=== PATIENT | female | born 1950 | race Caucasian/White ===

== ENCOUNTER 2017-04-11 17:37 | Emergency (ER) | payer MEDICARE ==
[~2017-04-11] VITALS: Ht 157.5 cm; Wt 58.0 kg
[~2017-04-11 17:37] MED LIST: AMLO10TA2 PO; ATOR40TA78 PO; CLON0.1T PO; DOCU100T6 PO; IBUP-1484 PO; OXYC-302 PO
[2017-04-11 18:04] VITALS: BP 107/67
== END 2017-04-11 19:22 | disposition home or self-care (01) ==
LOC: ED 19:17
DX: F10.220 Alcohol dependence with intoxication, uncomplicated (principal); I10 Essential (primary) hypertension
CPT/HCPCS: 99283

== ENCOUNTER 2018-03-29 11:38 | Emergency (ER) | payer MEDICARE ==
[~2018-03-29] VITALS: Ht 157.5 cm; Wt 64.0 kg
[~2018-03-29 11:38] MED LIST changes: -AMLO10TA2 PO; +AMLO10TA6 PO
[2018-03-29] MEDS ORDERED: AMLODIPINE 5 MG TABLET ONE (12:10)
[2018-03-29] MEDS ORDERED: ASPIRIN 81 MG TABLET CHEW ONE (12:10)
[2018-03-29 12:21] LABS: BASOPHILS # (AUTO) 0.22 x10^3/uL (0-0.1); BASOPHILS % (AUTO) 2 % (0-1); EOSINOPHILS # (AUTO) 0.05 x10^3/uL (0-0.4); EOSINOPHILS % (AUTO) 0 % (1-7); LYMPHOCYTES # (AUTO) 3.74 x10^3/uL (1-3.4); LYMPHOCYTES % (AUTO) 26 % (22-44); MD NO; MEAN CORPUSCULAR HEMOGLOBIN 30.3 pg (27.0-34.8); MEAN CORPUSCULAR HGB CONC 33.7 g/dL (32.4-35.8); MEAN CORPUSCULAR VOLUME 89.7 fL (80-100); MEAN PLATELET VOLUME 8.2 fL (7.4-10.4); MONOCYTES # (AUTO) 0.77 x10^3/uL (0.2-0.8); MONOCYTES % (AUTO) 5 % (2-9); NEUTROPHILS # (AUTO) 9.59 x10^3/uL (1.8-6.8); NEUTROPHILS % (AUTO) 67 % (42-75); PLATELET COUNT 406 x10^3/uL (130-400); RED BLOOD COUNT 5.35 x10^6/uL (3.82-5.3); RED CELL DISTRIBUTION WIDTH 15.9 % (9.6-15.2)
[2018-03-29] MEDS ORDERED: ASPIRIN 81 MG TABLET CHEW PO ONE (12:30)
[2018-03-29] MEDS ORDERED: AMLODIPINE 5 MG TABLET PO ONE (12:30)
[2018-03-29 12:33] LABS: ANION GAP 10 mmol/L (5-15); CALCIUM 8.7 mg/dL (8.5-10.1); CHLORIDE 111 mmol/L (98-107); CREATININE 0.93 mg/dL (0.55-1.02)
[2018-03-29 12:37] LABS: TROPONIN I < 0.015 ng/mL (0.000-0.045)
[2018-03-29 13:38] VITALS: BP 127/77
== END 2018-03-29 13:40 | disposition home or self-care (01) ==
LOC: ED 13:05
DX: I10 Essential (primary) hypertension (principal); F10.120 Alcohol abuse with intoxication, uncomplicated; R07.9 Chest pain, unspecified; Z76.0 Encounter for issue of repeat prescription
CPT/HCPCS: 36415; 71045; 80048; 82040; 84484; 85025; 99285

== ENCOUNTER 2018-10-10 06:51 | Emergency (ER) | payer MEDICARE ==
[~2018-10-10] VITALS: Ht 157.5 cm; Wt 63.8 kg
[~2018-10-10 06:51] MED LIST changes: -AMLO10TA6 PO; +AMLO10TA8 PO; -CLON0.1T PO; +CLON0.1T22 PO
[2018-10-10 06:57] VITALS: BP 168/101
--- NOTE | 2018-10-10 07:17 | NUR ---
Pt ambulated from restroom to ED room with steady gait and balance. Pt provided urine sample. NADN. No obvious defecits observed. Pt resting on gurney in room with call light in reach talking to ED PA.
[2018-10-10 07:34] LABS: BASOPHILS # (AUTO) 0.06 x10^3/uL (0-0.1); BASOPHILS % (AUTO) 1 % (0-1); EOSINOPHILS # (AUTO) 0.05 x10^3/uL (0-0.4); EOSINOPHILS % (AUTO) 1 % (1-7); LYMPHOCYTES # (AUTO) 1.61 x10^3/uL (1-3.4); LYMPHOCYTES % (AUTO) 14 % (22-44); MD NO; MEAN CORPUSCULAR HEMOGLOBIN 30.6 pg (27.0-34.8); MEAN CORPUSCULAR HGB CONC 32.7 g/dL (32.4-35.8); MEAN CORPUSCULAR VOLUME 93.5 fL (80-100); MEAN PLATELET VOLUME 7.5 fL (7.4-10.4); MONOCYTES # (AUTO) 0.55 x10^3/uL (0.2-0.8); MONOCYTES % (AUTO) 5 % (2-9); NEUTROPHILS # (AUTO) 8.93 x10^3/uL (1.8-6.8); NEUTROPHILS % (AUTO) 80 % (42-75); PLATELET COUNT 432 x10^3/uL (130-400); RED BLOOD COUNT 5.39 x10^6/uL (3.82-5.3); RED CELL DISTRIBUTION WIDTH 14.8 % (9.6-15.2)
[2018-10-10 07:45] LABS: ALBUMIN 3.8 g/dL (3.4-5.0); ANION GAP 8 mmol/L (5-15); CALCIUM 9.2 mg/dL (8.5-10.1); CHLORIDE 107 mmol/L (98-107); CREATININE 0.88 mg/dL (0.55-1.02)
[2018-10-10 07:55] LABS: MICROSCOPIC NOT IND
[2018-10-10 08:01] LABS: CULTURE INDICATED? NO
[2018-10-10] MEDS ORDERED: SODIUM CHLORIDE FLUSH 10ML SYR IVF ONE (09:00)
--- NOTE | 2018-10-10 09:22 | NUR ---
Pt transported [facility] to imaging.
[2018-10-10] MEDS ORDERED: OMNIPAQUE 350 MG/ML, 100ML BOTTLE ONE (09:44)
--- NOTE | 2018-10-10 10:14 | NUR ---
Pt states to ED RN, "Can't you take this thing out of my arm? How long is it going to be for the CT results to get back? Can't I go outside and smoke a cigarette, I can go outside the ER and smoke. Can't I eat?". Pt aggressive towards EDRN stating that EDRN is not "being cooperative with her" when EDRN educated patient about hospital smoking policy and NPO status prior to CT results coming back. EDPA aware. ED RN discontinued PIV. Please see charting.
--- NOTE | 2018-10-10 10:19 | NUR ---
Pt refusing to have vital signs checked.
--- NOTE | 2018-10-10 10:32 | NUR ---
Patient given discharge instructions and they have confirmed that they understand the instructions. Patient ambulatory with steady gait. Pt left with d/c paperwork, referral, prescription, and all personal belongings.
== END 2018-10-10 10:34 | disposition home or self-care (01) ==
LOC: ED 10:23
DX: K50.10 Crohn's disease of large intestine without complications (principal); R30.0 Dysuria; I10 Essential (primary) hypertension; F17.210 Nicotine dependence, cigarettes, uncomplicated
CPT/HCPCS: 36415; 74177; 80048; 81003; 82040; 85025; 99284; Q9967

== ENCOUNTER 2018-10-31 07:19 | Emergency (ER) | payer MEDICARE ==
[~2018-10-31] VITALS: Ht 157.5 cm; Wt 60.6 kg
--- NOTE | 2018-10-31 07:57 | NUR ---
X-RAY DELAYED PER RN REQUEST
[2018-10-31] MEDS ORDERED: MORPHINE SULFATE 4 MG/ML, 1ML IVPush PRN (08:00)
[2018-10-31] MEDS ORDERED: ONDANSETRON 2MG/ML, 2ML IVPush ONE (08:00)
[2018-10-31] MEDS ORDERED: FAMOTIDINE 20 MG/2 ML IVP ONE (08:00)
[2018-10-31] MEDS ORDERED: SODIUM CHLORIDE 0.9% 1,000ML IVBOLUS ONE (08:00)
--- NOTE | 2018-10-31 08:10 | NUR ---
PT ARRIVED TO ED, AMBULATORY TO ROOM 16. PT C/O ABDOMINAL PAIN, NAUSEA, VOMITTING, DIARRHEA, BLOODY STOOLS FOR APPROX. 1 MONTH. PT RECENTLY DIAGNOSED WITH CHRONS DISEASE. PT IN GOWN, AMBULATORY TO RESTROOM FOR UA. VSS, NAD, ROOM AIR, AT BEDSIDE. CALL LIGHT WITHIN REACH, BEDRAILS X [address]
[2018-10-31] MEDS ORDERED: FAMOTIDINE 20 MG/2 ML ONE (08:17)
[2018-10-31] MEDS ORDERED: ONDANSETRON 2MG/ML, 2ML ONE (08:17)
[2018-10-31] MEDS ORDERED: MORPHINE SULFATE 4 MG/ML, 1ML ONE (08:17)
--- NOTE | 2018-10-31 08:20 | NUR ---
22G PIV ESTABLISHED PER MD ORDER. PT MEDICATED PER EMAR.
[2018-10-31 08:22] LABS: MEAN CORPUSCULAR HEMOGLOBIN 29.6 pg (27.0-34.8); MEAN CORPUSCULAR HGB CONC 32.3 g/dL (32.4-35.8); MEAN CORPUSCULAR VOLUME 91.5 fL (80-100); MEAN PLATELET VOLUME 6.9 fL (7.4-10.4); PLATELET COUNT 559 x10^3/uL (130-400); RED BLOOD COUNT 5.23 x10^6/uL (3.82-5.3); RED CELL DISTRIBUTION WIDTH 14.2 % (9.6-15.2)
[2018-10-31 08:28] LABS: MICROSCOPIC AUTO
[2018-10-31 08:31] LABS: CULTURE INDICATED? NO
[2018-10-31 08:39] LABS: ALBUMIN 3.8 g/dL (3.4-5.0); ANION GAP 6 mmol/L (5-15); CALCIUM 10.1 mg/dL (8.5-10.1); CHLORIDE 105 mmol/L (98-107)
--- NOTE | 2018-10-31 08:41 | NUR ---
PT TO XRAY
[2018-10-31 08:43] LABS: ALANINE AMINOTRANSFERASE 29 U/L (12-78); ALKALINE PHOSPHATASE 209 U/L (45-117); BILIRUBIN,TOTAL 0.4 mg/dL (0.2-1.0); CREATININE 0.98 mg/dL (0.55-1.02); TOTAL PROTEIN 8.5 g/dL (6.4-8.2)
--- NOTE | 2018-10-31 08:46 | NUR ---
ATTEMPTED TO DO MED REC, BOTH PT AND DO NOT KNOW PT'S MEDICATIONS. NOTED AMLODIPINE IN MED REC BUT PT STATES SHE IS NO LONGER TAKEN THIS.
[2018-10-31 08:58] LABS: MD YES
[2018-10-31 09:01] LABS: <PLATELET ESTIMATE> INCREASED; <PLT MORPHOLOGY> NORMAL PLT MORPH; <RBC MORPHOLOGY> NORMAL; BAND#(MANUAL) 1.06 x10^3/uL; BANDS%(MANUAL) 8 % (0-7); LYMPH#(MANUAL) 0.92 x10^3/uL (1-3.4); LYMPHS% (MANUAL) 7 % (22-44); MONOS% (MANUAL) 3 % (2-9); SEG#(MANUAL) 10.82 x10^3/uL (1.8-6.8); SEGS% (MANUAL) 82 % (42-75)
--- NOTE | 2018-10-31 09:45 | NUR ---
PT TO CT.
[2018-10-31] MEDS ORDERED: OMNIPAQUE 350 MG/ML, 100ML BOTTLE ONE (10:08)
[2018-10-31 10:31] VITALS: BP 136/98
--- NOTE | 2018-10-31 10:32 | NUR ---
PT BACK FROM CT. AMBULATED TO RESTROOM.
--- NOTE | 2018-10-31 11:13 | NUR ---
Patient/Caregiver given discharge instructions and they have confirmed that they understand the instructions. Patient ambulatory with steady gait.
== END 2018-10-31 11:14 | disposition home or self-care (01) ==
LOC: ED 07:56
DX: K50.10 Crohn's disease of large intestine without complications (principal); I10 Essential (primary) hypertension; R19.7 Diarrhea, unspecified
CPT/HCPCS: 36415; 74021; 74177; 80053; 81001; 83690; 85025; 96361; 96374; 96375; 99284; J2270; J2405; J3490; J7030; Q9967

== ENCOUNTER 2019-07-30 15:38 | Emergency (ER) | payer MEDICARE ==
[~2019-07-30] VITALS: Ht 157.5 cm; Wt 58.5 kg
[~2019-07-30 15:38] MED LIST changes: -IBUP-1484 PO; +IBUP-1902 PO
[2019-07-30] MEDS ORDERED: HYDROmorphone 1 MG/ML, 1ML INJ ONE (16:00)
[2019-07-30] MEDS ORDERED: HYDROmorphone 2 MG/ML, 1ML IVPush PRN (16:00)
[2019-07-30] MEDS ORDERED: SODIUM CHLORIDE FLUSH 10ML SYR IVF ONE (16:00)
[2019-07-30] MEDS ORDERED: ONDANSETRON 2MG/ML, 2ML IVPush ONE (16:00)
[2019-07-30] MEDS ORDERED: ONDANSETRON 2MG/ML, 2ML ONE (16:00)
[2019-07-30 16:14] LABS: BASOPHILS # (AUTO) 0.06 x10^3/uL (0-0.1); BASOPHILS % (AUTO) 1 % (0-1); EOSINOPHILS # (AUTO) 0.05 x10^3/uL (0-0.4); EOSINOPHILS % (AUTO) 1 % (1-7); LYMPHOCYTES % (AUTO) 22 % (22-44); MD NO; MEAN CORPUSCULAR HEMOGLOBIN 30.6 pg (27.0-34.8); MEAN CORPUSCULAR HGB CONC 33.1 g/dL (32.4-35.8); MEAN CORPUSCULAR VOLUME 92.4 fL (80-100); MEAN PLATELET VOLUME 7.4 fL (7.4-10.4); MONOCYTES # (AUTO) 0.74 x10^3/uL (0.2-0.8); MONOCYTES % (AUTO) 7 % (2-9); NEUTROPHILS # (AUTO) 7.38 x10^3/uL (1.8-6.8); NEUTROPHILS % (AUTO) 70 % (42-75); PLATELET COUNT 442 x10^3/uL (130-400); RED BLOOD COUNT 4.76 x10^6/uL (3.82-5.3); RED CELL DISTRIBUTION WIDTH 15.5 % (9.6-15.2)
[2019-07-30 16:27] LABS: ALANINE AMINOTRANSFERASE 50 U/L (12-78); ALBUMIN 3.6 g/dL (3.4-5.0); ANION GAP 8 mmol/L (5-15); CALCIUM 9.5 mg/dL (8.5-10.1); CHLORIDE 103 mmol/L (98-107); CREATININE 0.91 mg/dL (0.55-1.02)
--- NOTE | 2019-07-30 16:27 | NUR ---
PT WITH C/O DIARHHEA X 6 DAYS. PT ALSO STATES SHE IS HAVING INCREASED BACK PAIN. PT DENIES URINARY SYMPTOMS. PT WITH HX CHRONIC BACK PAIN, CHRONES. PT WALKED TO BR, PT STEADY C USE OF CANE. UA SAMPLE COLLECTED AND SENT TO LAB. PIV INTITATED AND PT MEDICATED PER JUL. PT TO BP, CONT PULSE OX
[2019-07-30 16:29] LABS: ALKALINE PHOSPHATASE 218 U/L (45-117); BILIRUBIN,TOTAL 0.4 mg/dL (0.2-1.0); TOTAL PROTEIN 7.6 g/dL (6.4-8.2)
[2019-07-30 16:36] LABS: MICROSCOPIC NOT IND
[2019-07-30 16:38] LABS: CULTURE INDICATED? NO
--- NOTE | 2019-07-30 17:26 | NUR ---
PT UPDATED ON POC. PT TO GO TO CT, VSS
[2019-07-30 18:37] VITALS: BP 168/75
--- NOTE | 2019-07-30 18:37 | NUR ---
PT UNABLE TO PROVIDE STOOL SAMPLE. PT PLACED FOR RECHECK
[2019-07-30] MEDS ORDERED: OMNIPAQUE 350 MG/ML, 100ML BOTTLE ONE (18:49)
--- NOTE | 2019-07-30 19:16 | NUR ---
Report received from ELLIOTT Mccloud. This RN to assume care. Patient states she spoke with ERP and she's ready to go home. Patient to be discharged.
== END 2019-07-30 19:19 | disposition home or self-care (01) ==
LOC: ED 16:38
DX: K50.80 Crohn's disease of both small and large intestine without complications (principal); M54.5 Low back pain; I10 Essential (primary) hypertension; F17.200 Nicotine dependence, unspecified, uncomplicated
CPT/HCPCS: 36415; 74177; 80053; 81003; 83605; 83690; 85025; 96374; 96375; 99285; J1170; J2405; Q9967

== ENCOUNTER 2019-08-12 17:59 | Emergency (ER) | payer MEDICARE ==
[~2019-08-12] VITALS: Ht 157.5 cm; Wt 60.0 kg
[2019-08-12] MEDS ORDERED: MORPHINE SULFATE 4 MG/ML, 1ML ONE ×2 (18:15→20:28)
[2019-08-12] MEDS ORDERED: ONDANSETRON 2MG/ML, 2ML ONE (18:15)
[2019-08-12] MEDS: MORPHINE SULFATE 4 MG/ML, 1ML IVPush PRN ×2 (18:25→20:31)
[2019-08-12] MEDS ORDERED: ONDANSETRON 2MG/ML, 2ML IVPush ONE (18:30)
[2019-08-12] MEDS ORDERED: SODIUM CHLORIDE FLUSH 10ML SYR IVF ONE (18:30)
[2019-08-12] MEDS ORDERED: SODIUM CHLORIDE 0.9% 1,000ML IVBOLUS ONE (18:30)
--- NOTE | 2019-08-12 18:30 | NUR ---
PIV ACCESS OBTAINED. 22 L HAND. MEDICAITON ADMINISTERED FOR 8/10 LOWER BACK PAIN. FLUIDS BEING ADMINISTERED PER EMAR. CALL LIGHT AND PERSONAL BELONGINGS WITHIN REACH. RN TO CONTINUE TO MONITOR.
[2019-08-12 18:35] LABS: BASOPHILS # (AUTO) 0.13 x10^3/uL (0-0.1); BASOPHILS % (AUTO) 1 % (0-1); EOSINOPHILS % (AUTO) 1 % (1-7); LYMPHOCYTES # (AUTO) 3.16 x10^3/uL (1-3.4); LYMPHOCYTES % (AUTO) 25 % (22-44); MD NO; MEAN CORPUSCULAR HEMOGLOBIN 31.1 pg (27.0-34.8); MEAN CORPUSCULAR HGB CONC 33.7 g/dL (32.4-35.8); MEAN CORPUSCULAR VOLUME 92.4 fL (80-100); MEAN PLATELET VOLUME 7.4 fL (7.4-10.4); MONOCYTES # (AUTO) 0.64 x10^3/uL (0.2-0.8); MONOCYTES % (AUTO) 5 % (2-9); NEUTROPHILS # (AUTO) 8.55 x10^3/uL (1.8-6.8); NEUTROPHILS % (AUTO) 68 % (42-75); PLATELET COUNT 405 x10^3/uL (130-400); RED BLOOD COUNT 4.59 x10^6/uL (3.82-5.3); RED CELL DISTRIBUTION WIDTH 15.1 % (9.6-15.2)
[2019-08-12 18:46] LABS: ALANINE AMINOTRANSFERASE 42 U/L (12-78); ALBUMIN 3.6 g/dL (3.4-5.0); ANION GAP 7 mmol/L (5-15); CALCIUM 9.5 mg/dL (8.5-10.1); CHLORIDE 106 mmol/L (98-107)
[2019-08-12 18:48] LABS: ALKALINE PHOSPHATASE 178 U/L (45-117); BILIRUBIN,TOTAL 0.4 mg/dL (0.2-1.0); CREATININE 0.82 mg/dL (0.55-1.02); TOTAL PROTEIN 7.8 g/dL (6.4-8.2)
[2019-08-12] MEDS ORDERED: ONDA4TAB7 PO (18:56)
[2019-08-12] MEDS ORDERED: PHEN-418 PO (18:56)
[2019-08-12] MEDS ORDERED: DILT120T3 PO (18:56)
[2019-08-12] MEDS ORDERED: PRED20TA PO (18:56)
--- NOTE | 2019-08-12 18:56 | NUR ---
MEDICATION VERIFIED WITH PT'S PAPERWORK. PT BEING TRANSPORTED TO RADIOLOGY VIA GURNEY.
--- NOTE | 2019-08-12 18:57 | NUR ---
ELLIOTT PORTILLO TO ASSUME PRIMARY CARE OF PT.
--- NOTE | 2019-08-12 19:00 | NUR ---
REPORT FROM ELLIOTT MCGUIRE, PT CARE ASSUMED AT THIS TIME
[2019-08-12] MEDS ORDERED: OMNIPAQUE 350 MG/ML, 100ML BOTTLE ONE (19:17)
[2019-08-12 19:56] LABS: MICROSCOPIC NOT IND
[2019-08-12 20:03] LABS: CULTURE INDICATED? NO
[2019-08-12 20:45] VITALS: BP 151/69
== END 2019-08-12 20:47 | disposition home or self-care (01) ==
LOC: ED 20:15
DX: K50.00 Crohn's disease of small intestine without complications (principal); K50.10 Crohn's disease of large intestine without complications; I10 Essential (primary) hypertension
CPT/HCPCS: 36415; 74177; 80053; 81003; 83690; 85025; 96361; 96374; 96375; 96376; 99285; J2270; J2405; J7030; Q9967

== ENCOUNTER 2020-07-15 13:20 | Emergency (ER) | payer MEDICARE ==
[~2020-07-15] VITALS: Ht 157.5 cm; Wt 58.0 kg
[~2020-07-15 13:20] MED LIST changes: +AMLO-211 PO; -AMLO10TA8 PO; +DILT120T3 PO; +ONDA4TAB7 PO; -OXYC-302 PO; +OXYC1TAB14 PO; +PHEN-418 PO; +PRED20TA PO
--- NOTE | 2020-07-15 13:51 | NUR ---
PT BIB EMS FOR C/O CP AND PRESSURE THAT PT STATES "STARTED 50 HOURS AGO". PT C/O "IM TIRED." PT STATES SHE HAS BEEN DRINKING AND STATES SHE HAS HAD "AT LEAST 1 PINT OF WHISKEY". PT STATES "MY HEART JUST DOESNT FEEL RIGHT". PT TEARFUL STATING "IM ANGRY AND TIRED. IM JUST TIRED OF EVERYTHING GOING ON". PT DENIES SUICIDAL IDEATION AT THIS TIME. MONITORS CONNECTED. EKG COMPLETE. WARM BLANKET PROVIDED.
[2020-07-15] MEDS ORDERED: FAMOTIDINE 20 MG TABLET ONE (14:24)
[2020-07-15] MEDS ORDERED: ASPIRIN 81 MG TABLET CHEW ONE (14:24)
[2020-07-15] MEDS ORDERED: ASPIRIN 81 MG TABLET CHEW PO ONE (14:30)
[2020-07-15] MEDS ORDERED: FAMOTIDINE 20 MG TABLET PO ONE (14:30)
[2020-07-15 14:40] LABS: BASOPHILS % (AUTO) 1 % (0-1); EOSINOPHILS % (AUTO) 1 % (1-7); LYMPHOCYTES % (AUTO) 27 % (22-44); MEAN CORPUSCULAR HEMOGLOBIN 30.9 pg (27.0-34.8); MEAN CORPUSCULAR HGB CONC 34.1 g/dL (32.4-35.8); MEAN PLATELET VOLUME 7.5 fL (7.4-10.4); MONOCYTES % (AUTO) 5 % (2-9); NEUTROPHILS % (AUTO) 66 % (42-75); PLATELET COUNT 379 x10^3/uL (130-400); RED BLOOD COUNT 4.83 x10^6/uL (3.82-5.3); RED CELL DISTRIBUTION WIDTH 14.2 % (9.6-15.2)
[2020-07-15 14:41] LABS: ALBUMIN 3.9 g/dL (3.4-5.0); ANION GAP 13 mmol/L (5-15); CALCIUM 8.8 mg/dL (8.5-10.1); CHLORIDE 109 mmol/L (98-107); CREATININE 0.92 mg/dL (0.55-1.02); MD NO
[2020-07-15 14:44] LABS: TROPONIN I < 0.015 ng/mL (0.000-0.045)
--- NOTE | 2020-07-15 14:45 | NUR ---
BREAK RN: PATIENT AMBULATED TO BATHROOM WITH STEADY GAIT.
[2020-07-15 14:51] VITALS: BP 133/62
--- NOTE | 2020-07-15 15:19 | NUR ---
TESTING SPECIALIST: PT WONDERING RED, WHEN ASKED IF SHE NEEDED HELP, REPLIES "NO" PT RETURN TO MAIN DESK, MUMBLES "WAITING 9 HOURS FOR A DOCTOR IS RIDICULES" NO IV IN PLACE. PT LEFT AMB, GAIT STEADY.
[2020-07-15] MEDS ORDERED: THIAMINE 100MG TABLET PO ONE (15:30)
== END 2020-07-15 15:23 | disposition left against medical advice (07) ==
LOC: ED 15:00
DX: F10.10 Alcohol abuse, uncomplicated (principal); R07.2 Precordial pain; I10 Essential (primary) hypertension; R00.1 Bradycardia, unspecified; I45.10 Unspecified right bundle-branch block; Y90.0 Blood alcohol level of less than 20 mg/100 ml
CPT/HCPCS: 36415; 71045; 80048; 82040; 84484; 85025; 93005; 99285